=== PATIENT | female | born 1975 | race Caucasian/White ===

== ENCOUNTER 2017-12-19 17:59 | Emergency (ER) | payer SELFPAY ==
[~2017-12-19] VITALS: Ht 172.7 cm; Wt 74.8 kg
[2017-12-19] MEDS ORDERED: IV NORMAL SALINE 1,000ML 1,000 ML IV ONE (18:45)
--- NOTE | 2017-12-19 18:54 | PHYS DOC ---
Adult General Chief Complaint Chief Complaint: GENERALIZED BODY ACHES HPI HPI 42 yo female presents with left shoulder pain that has been on and off for several weeks. 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 The pain is "like it is falling asleep, but much more intense." The only recent trauma was a few boxes fell against her arms while she was moving them in the basement. She didn't have any immediate pain, but there is some bruising in the upper biceps area bilaterally. When she picks up light objects, they "feel very heavy". The pain radiates into her left chest and is a cramping. The patient has seen her PCP about this shoulder pain in the past and an MRI was reportedly done at [facility]. They found an incidental finding of thyroid nodule, so nothing further ever got done about the shoulder. She was at [facility] earlier today and they did an EKG and "nothing else." She took a Vicodin yesterday that a friend gave her, but it "didn't help at all." She has not taken any other pain or antiinflammatory medications. She deniesfever, chills, SOB or diaphoresis. Review of Systems Review of Systems Constitutional: Denies fever or chills [] Eyes: Denies change in visual acuity, redness, or eye pain [] HENT: Denies nasal congestion or sore throat [] Respiratory: Denies cough or shortness of breath [] Cardiovascular: No additional information not addressed in HPI [] GI: Denies abdominal pain, nausea, vomiting, bloody stools or diarrhea [] : Denies dysuria or hematuria [] Musculoskeletal: Left shoulder pain [] Integument: Denies rash or skin lesions [] Neurologic: Denies headache, focal weakness or sensory changes [] Endocrine: Denies polyuria or polydipsia [] All other systems were reviewed and found to be within normal limits, except as documented in this note. Current Medications Current Medications Current Medications Medications (Trade) Dose Ordered Sig/Leatha Start Time Stop Time Status Last Admin Dose Admin Ketorolac Tromethamine (Toradol) 30 mg 1X ONCE 12/19/17 18:45 12/19/17 18:46 UNV Sodium Chloride 1,000 ml @ 1,000 mls/hr 1X ONCE 12/19/17 18:45 12/19/17 19:44 UNV Physical Exam Physical Exam Constitutional: Well developed, well nourished, no acute distress, non-toxic appearance. [] HENT: Normocephalic, atraumatic, bilateral external ears normal, oropharynx moist, no oral exudates, nose normal. [] Eyes: PERRLA, EOMI, conjunctiva normal, no discharge. [] Neck: Normal range of motion, no tenderness, supple, no stridor. [] Cardiovascular:Heart rate regular rhythm, no murmur [] Lungs & Thorax: Bilateral breath sounds clear to auscultation [] Abdomen: Bowel sounds normal, soft, no tenderness, no masses, no pulsatile masses. [] Skin: Warm, dry, no erythema, no rash. [] Back: No tenderness, no CVA tenderness. [] Extremities: No tenderness, no cyanosis, no clubbing, left shoulder pain with abduction and flexion, 4/5 strength, positive empty can test on left, tenderness over supraspinatus distribution. [] Neurologic: Alert and oriented X 3, normal motor function, normal sensory function, no focal deficits noted. [] Psychologic: Affect normal, judgement normal, mood normal. The patient is exaggerating her symptoms with poor effort in shoulder testing. She appears to have pain, but is more dramatic than physical findings warrant.[] EKG EKG Sinus rhythm, rate 66, normal axis, no ST elevations or depressions.[] Radiology/Procedures Radiology/Procedures PROCEDURE: PORTABLE CHEST 1V CLINICAL INDICATION: Chest/Shoulder pain. No prior injury or surgery. Patient unable to remove nipple piercings COMPARISON: None FINDINGS: No pneumothorax identified. Cardiac and mediastinal contours unremarkable. No pulmonary consolidation or acute airspace disease. No acute osseous abnormalities identified. IMPRESSION: No pulmonary consolidation or acute airspace disease. Electronically signed by: Yousuf Kan DO (12/19/2017 7:26 PM) [facility] DICTATED AND SIGNED BY: YOUSUF KAN DO DATE: 12/19/171924 CC: MIKE MOYA DO; SINA SKELTON MD ~[] Course & Med Decision Making Course & Med Decision Making Pertinent Labs and Imaging studies reviewed. (See chart for details) Chest x-ray is unremarkable. Her EKG is unremarkable. Her labs are unremarkable. Her troponin is 0.024 which is below the threshold for laboratory of 0.055. The patient's pain appears to be musculoskeletal in nature. I was unable to find an MRI in our system, perhaps she had evidence of rales. I suspect supraspinatus partial tear. I have recommended that she follow up with orthopedics or consultation and possible scope. I have advised that she also consider physical therapy. For information, I will give the patient a prescription for prednisone 50 mg for 5 days to see if this calms down her pain. I will additionally trial the patient on Neurontin for her shooting pains as they sound like nerve pains. She will follow up with her PCP for further treatment. [] Dragon Disclaimer Dragon Disclaimer This electronic medical record was generated, in whole or in part, using a voice recognition dictation system. Departure Departure: Scripts Prednisone (PREDNISONE) 50 Mg Tablet 1 TAB PO DAILY, #5 TAB Prov: MIKE MOYA DO 12/19/17 Gabapentin (NEURONTIN) 100 Mg Capsule 100 MG PO TID for 14 Days, #42 CAP Prov: MIKE MOYA DO 12/19/17 MIKE MOYA DO Dec 19, 2017 18:54
--- NOTE | 2017-12-19 18:59 | EKG ---
[address] [address] Test Date: 2017-12-19 Test Time: 18:54:39 Pat Name: CAITLYN MONTERO Department: Room: Gender: F [employer]: CORNELIUS : 1975 Requested By: MIKE MOYA Order Number: [id number] Reading MD: Measurements Intervals [place] Rate: 66 P: 43 SC: 200 QRS: 20 QRSD: 82 T: 17 QT: 356 QTc: 375 Interpretive Statements SINUS RHYTHM INCOMPLETE RIGHT BUNDLE BRANCH BLOCK QRS(T) CONTOUR ABNORMALITY CONSIDER ANTEROSEPTAL MYOCARDIAL DAMAGE POSSIBLY ABNORMAL ECG RI6.01 No previous ECG available for comparison
[2017-12-19] MEDS ORDERED: KETOROLAC 30 MG/ML VIAL. IV ONE (19:00)
[2017-12-19] MEDS ORDERED: GABAPENTIN 100 MG CAPSULE. PO ONE (19:30)
--- NOTE | 2017-12-19 19:30 | RAD ---
PROCEDURE: PORTABLE CHEST 1V CLINICAL INDICATION: Chest/Shoulder pain. No prior injury or surgery. Patient unable to remove nipple piercings COMPARISON: None FINDINGS: No pneumothorax identified. Cardiac and mediastinal contours unremarkable. No pulmonary consolidation or acute airspace disease. No acute osseous abnormalities identified. IMPRESSION: No pulmonary consolidation or acute airspace disease. Electronically signed by: Yousuf Feng DO (12/19/2017 7:26 PM) [facility]
[2017-12-19 19:36] LABS: BASO # 0.1 x10^3/uL (0.0-0.2); BASO % 1 % (0-3); EOS # 0.3 x10^3/uL (0.0-0.7); EOS % 4 % (0-3); HEMATOCRIT 40.1 % (36.0-47.0); HEMOGLOBIN 13.5 g/dL (12.0-15.5); LYMPH # 3.4 x10^3/uL (1.0-4.8); LYMPH % 46 % (24-48); MEAN CORPUSCULAR HEMOGLOBIN 32 pg (25-35); MEAN CORPUSCULAR HGB CONC 34 g/dL (31-37); MEAN CORPUSCULAR VOLUME 95 fL (79-100); MONO # 0.5 x10^3/uL (0.0-1.1); MONO % 6 % (0-9); NEUT # 3.1 x10^3uL (1.8-7.7); NEUT % 43 % (31-73); PLATELET COUNT 321 x10^3/uL (140-400); RED BLOOD COUNT 4.24 x10^6/uL (3.50-5.40); RED CELL DISTRIBUTION WIDTH 13.3 % (11.5-14.5); WHITE BLOOD COUNT 7.3 x10^3/uL (4.0-11.0)
[2017-12-19 19:51] LABS: ALBUMIN 3.3 g/dL (3.4-5.0); ALBUMIN/GLOBULIN RATIO 0.9 (1.0-1.7); CREATININE 0.9 mg/dL (0.6-1.0); GFR 68.3; POTASSIUM 3.8 mmol/L (3.5-5.1); TOTAL BILIRUBIN 0.2 mg/dL (0.2-1.0); TOTAL PROTEIN 6.8 g/dL (6.4-8.2)
[2017-12-19] MEDS ORDERED: GABA-585 PO (20:04)
[2017-12-19] MEDS ORDERED: PRED50TA PO (20:05)
[2017-12-19 20:07] VITALS: BP 99/48
== END 2017-12-19 20:18 | disposition home or self-care (01) ==
LOC: ER 17:59
DX: M25.512 Pain in left shoulder (principal); W20.8XXA Other cause of strike by thrown, projected or falling object, initial encounter; Y93.89 Activity, other specified; Y99.8 Other external cause status; Y92.89 Other specified places as the place of occurrence of the external cause
CPT/HCPCS: 36415; 71045; 80053; 84484; 85025; 93005; 96374; 99285; J1885; J7030